=== PATIENT | female | born 1950 | race Caucasian/White ===

== ENCOUNTER → 2023-11-16 17:17 | Outpatient (REF) | payer MEDICARE, SELFPAY ==
[2023-11-18 19:13] LABS: Bacterial Vaginosis by TMA Negative; Candida glabrata by TMA Positive; Candida species by TMA Positive; Trichomonas vaginalis by TMA Negative
== END ==
LOC: CLAB 17:17
PROVIDERS: ATTENDING PHYSICIAN Obstetrics & Gynecology
DX: B37.31 Acute candidiasis of vulva and vagina (principal)
CPT/HCPCS: 81513; 87481; 87661